=== PATIENT | female | born 1970 | race Caucasian/White ===

== ENCOUNTER 2018-08-27 22:24 | Emergency (ER) | payer SELFPAY ==
[2018-08-27] MEDS ORDERED: Adacel (T-DAP) 0.5 ML SYRINGE ONE (22:59)
== END 2018-08-27 23:20 | disposition home or self-care (01) ==
LOC: ERS 22:24
DX: S61.011A Laceration without foreign body of right thumb without damage to nail, initial encounter (principal); F17.210 Nicotine dependence, cigarettes, uncomplicated; W26.8XXA Contact with other sharp object(s), not elsewhere classified, initial encounter
CPT/HCPCS: 12001; 90471; 90715

== ENCOUNTER 2019-04-25 16:31 | Emergency (ER) | payer SELFPAY ==
--- NOTE | 2019-04-25 17:25 | RAD ---
XR Shoulder Rt 3 View STANDARD HISTORY: Right shoulder pain FINDINGS: No fracture or dislocation is identified.
[2019-04-25] MEDS ORDERED: Ketorolac Tromethamine 30 MG/ML VIAL ONE (17:44)
== END 2019-04-25 18:08 | disposition home or self-care (01) ==
LOC: ERS 16:31
DX: M25.511 Pain in right shoulder (principal); F17.210 Nicotine dependence, cigarettes, uncomplicated; W20.8XXA Other cause of strike by thrown, projected or falling object, initial encounter
CPT/HCPCS: 96372; J1885